=== PATIENT | male | born 1935 | race Caucasian/White ===

== ENCOUNTER → 2016-07-05 | Outpatient (CLI) | payer OTHER ==
[~2016-07-05] MED LIST: CARDIZEM CD180 MG PO; ECOTRIN81 MG PO; FLONASE 0.05% N16 GM; IPRAT-ALBUT 0.5-3 ML INH; K-DUR TAB 10 M10 MEQ PO; LASIX20 MG PO; LEVAQUIN TAB 5500 MG PO; LOPRESSOR50 MG PO; MYCOLOG II OINT15 GM EXT; OXYBUTYNIN CHLOR5 MG PO; PROTONIX40 MG PO; SYMBICORT 160-1 INHA INH; TOPROL XL 50 MG50 MG PO; VENTOLIN HFA 66.7 GM INH; XARELTO20 MG PO
== END ==
LOC: RAD 10:05
DX: J15.8 Pneumonia due to other specified bacteria (principal); L08.89 Other specified local infections of the skin and subcutaneous tissue; J42 Unspecified chronic bronchitis; J84.10 Pulmonary fibrosis, unspecified; M85.88 Other specified disorders of bone density and structure, other site; M45.4 Ankylosing spondylitis of thoracic region; Z88.8 Allergy status to other drugs, medicaments and biological substances
CPT/HCPCS: 71020

== ENCOUNTER → 2016-07-12 | Outpatient (CLI) | payer OTHER | LOC: RAD 13:54 | DX: M54.5 Low back pain (principal); B00.89 Other herpesviral infection; D40.0 Neoplasm of uncertain behavior of prostate; F32.1 Major depressive disorder, single episode, moderate; F32.89 Other specified depressive episodes; F41.1 Generalized anxiety disorder; I48.2 Chronic atrial fibrillation; J20.9 Acute bronchitis, unspecified; J30.9 Allergic rhinitis, unspecified; J43.8 Other emphysema; J44.1 Chronic obstructive pulmonary disease with (acute) exacerbation; L02.211 Cutaneous abscess of abdominal wall; L02.512 Cutaneous abscess of left hand; L08.89 Other specified local infections of the skin and subcutaneous tissue; M12.861 Other specific arthropathies, not elsewhere classified, right knee; N32.81 Overactive bladder; R09.02 Hypoxemia; R19.09 Other intra-abdominal and pelvic swelling, mass and lump; R60.0 Localized edema; R91.8 Other nonspecific abnormal finding of lung field; T78.49XS Other allergy, sequela; M51.36 Other intervertebral disc degeneration, lumbar region; Z00.01 Encounter for general adult medical examination with abnormal findings | CPT/HCPCS: 72110 ==

== ENCOUNTER → 2016-08-23 | Outpatient (CLI) | payer OTHER | LOC: OPSV 17:18 | DX: Z00.01 Encounter for general adult medical examination with abnormal findings (principal); B00.89 Other herpesviral infection; D40.0 Neoplasm of uncertain behavior of prostate; F32.1 Major depressive disorder, single episode, moderate; F32.89 Other specified depressive episodes; F41.1 Generalized anxiety disorder; I10 Essential (primary) hypertension; I48.2 Chronic atrial fibrillation; J20.8 Acute bronchitis due to other specified organisms; J30.9 Allergic rhinitis, unspecified; J43.8 Other emphysema; L02.211 Cutaneous abscess of abdominal wall; L02.214 Cutaneous abscess of groin; L02.32 Furuncle of buttock; L02.512 Cutaneous abscess of left hand; L08.89 Other specified local infections of the skin and subcutaneous tissue; L89.159 Pressure ulcer of sacral region, unspecified stage; M12.861 Other specific arthropathies, not elsewhere classified, right knee; M54.5 Low back pain; N32.81 Overactive bladder; R09.02 Hypoxemia; R19.09 Other intra-abdominal and pelvic swelling, mass and lump; R60.0 Localized edema; R91.8 Other nonspecific abnormal finding of lung field; T78.49XS Other allergy, sequela | CPT/HCPCS: 87070; 87077; 87186; 87205 ==

== ENCOUNTER 2021-04-17 10:40 | Inpatient (IN) | payer OTHER ==
[~2021-04-17] VITALS: Ht 182.9 cm; Wt 105.2 kg
[2021-04-17 12:25] LABS: HEMOGLOBIN 15.4 gm/dl (14.0-17.5); RED BLOOD COUNT 5.14 M/UL (4.20-5.50); WHITE BLOOD COUNT 8.4 K/UL (4.5-11.0)
[2021-04-17 12:45] LABS: BUN/CREATININE RATIO 32 (0-10)
[2021-04-17] MEDS ORDERED: SPIRONOLACTONE25 MG PO (17:12)
[2021-04-17] MEDS ORDERED: FUROSEMIDE20 MG PO (17:13)
[2021-04-17] MEDS ORDERED: RESTASIS1 EACH EYELF (17:14)
[2021-04-17] MEDS ORDERED: SYMBICORT 16010.2 GM INH (17:15)
[2021-04-17] MEDS ORDERED: DUREZOL5 ML EYERT (17:19)
[2021-04-17 17:24] LABS: BORDETELLA PARAPERTUSSIS Not Detected (Not Detectd); BORDETELLA PERTUSSIS Not Detected (Not Detectd); CHLAMYDIA PNEUMONIAE Not Detected (Not Detectd); CORONAVIRUS HKU1 Not Detected (Not Detectd); CORONAVIRUS NL63 Not Detected (Not Detectd); CORONAVIRUS OC43 Not Detected (Not Detectd); CORONOAVIRUS 229E Not Detected (Not Detectd); HUMAN METAPNEUMOVIRUS Not Detected (Not Detectd); HUMAN RHINOVIRUS/ENTEROVIRUS Not Detected (Not Detectd); INFLUENZA A Not Detected (Not Detectd); INFLUENZA B Not Detected (Not Detectd); MYCOPLASMA PNEUMONIAE Not Detected (Not Detectd); PARAINFLUENZA VIRUS 1 Not Detected (Not Detectd); PARAINFLUENZA VIRUS 2 Not Detected (Not Detectd); PARAINFLUENZA VIRUS 3 Not Detected (Not Detectd); PARAINFLUENZA VIRUS 4 Not Detected (Not Detectd); RESPIRATORY SYNCYTIAL VIRUS Not Detected (Not Detectd)
[2021-04-17 20:41] LABS: SARS-CoV-2 NOT DETECTED (Not Detectd)
--- NOTE | 2021-04-18 02:00 | NUR ---
PATIENT HEARTRATE CONTINUES TO DROP INTO THE 30'S AND A COUPLE OF TIMES IN THE 20'S WHILE SLEEPING. PATIENT STILL IN AFIB WITH SLOW VENTRICULAR RESPONSE. NOTIFIED DR CARDONA OF PATIENT'S HEARTRATE AND ASKED IF THERE WAS ANYTHING ELSE THAT NEEDED TO BE DONE FOR THE PATIENT AT THIS TIME. NO NEW ORDERS RECEIVED. CARDIOLOGY CONSULT HAS BEEN ORDERED. PATIENT'S DAUGHTER IS AT BEDSIDE.
--- NOTE | 2021-04-18 03:00 | NUR ---
PATIENT HAS BEEN RESTING COMFORTABLY TONIGHT WITH DAUGHTER AT BEDSIDE. PHOTOS TAKEN OF BLISTERS TO BLE AND BLISTERS ARE WRAPPED WITH NON-ADHESIVE PADS AND KERLIX. WAFFLE MATTRESS PLACED UNDER PATIENT. BEAR-HUGGER REMOVED BY PATIENT; TEMPERATURE 97.6 AXILLARY AT THIS TIME. PATIENT AWAKE AND TALKING, ABLE TO DRINK SIPS OF WATER. INSTRUCTED PATIENT'S DAUGHTER TO CALL FOR WANTS/NEEDS.
[2021-04-18 04:39] LABS: HEMOGLOBIN 14.8 gm/dl (14.0-17.5); RED BLOOD COUNT 4.98 M/UL (4.20-5.50); WHITE BLOOD COUNT 8.1 K/UL (4.5-11.0)
[2021-04-18 05:46] LABS: BUN/CREATININE RATIO 35 (0-10)
[2021-04-19 04:32] LABS: HEMOGLOBIN 15.4 gm/dl (14.0-17.5); RED BLOOD COUNT 5.22 M/UL (4.20-5.50)
[2021-04-19 04:33] LABS: WHITE BLOOD COUNT 11.8 K/UL (4.5-11.0)
[2021-04-19 05:18] LABS: BUN/CREATININE RATIO 33 (0-10)
[2021-04-19 14:57] LABS: BODY FLUID SOURCE PLEURAL; MONONUCLEAR CELLS 95 (75-100); POLYMORPHONUCLEAR % 5 (0-25); RBC (AUTOMATED) 3200 (0-100000); WBC (AUTOMATED) 429 (0-500)
[2021-04-19 15:13] LABS: TOTAL PROTEIN, BODY FLUID 2.7 gm/dL
[2021-04-19 15:14] LABS: LDH, BODY FLUID 55 U/L
[2021-04-20 03:56] LABS: HEMOGLOBIN 17.2 gm/dl (14.0-17.5); RED BLOOD COUNT 5.73 M/UL (4.20-5.50)
[2021-04-20 03:59] LABS: WHITE BLOOD COUNT 15.7 K/UL (4.5-11.0)
[2021-04-20 04:11] LABS: BUN/CREATININE RATIO 36 (0-10)
[2021-04-21 06:49] LABS: HEMOGLOBIN 16.2 gm/dl (14.0-17.5); RED BLOOD COUNT 5.39 M/UL (4.20-5.50); WHITE BLOOD COUNT 12.8 K/UL (4.5-11.0)
[2021-04-21] MEDS ORDERED: HALDOL 1 MG TAB1 MG PO (13:02)
[2021-04-21] MEDS ORDERED: OMNICEF 300 MG300 MG PO (13:25)
--- NOTE | 2021-04-22 16:46 | NUR ---
DR. STRANGE ROUNDED EARLIER, PATIENT WAS STILL HAVING ISSUES WITH CONSTIPATION. SHE ORDERED FOR A SINGLE DOSE OF MAG CITRATE, BUT PATIENT HAD A LARGE BOWEL MOVEMENT BEFORE ORDER WAS PUT IN. I LET MD KNOW, AND SHE SAID TO HOLD ON THE ORDER.
--- NOTE | 2021-04-23 23:57 | NUR ---
PATIENT DAUGHTER AT BEDSIDE REFUSING TO HAVE TELE PLACED ON PATIENT AT THIS TIME.
--- NOTE | 2021-04-24 12:49 | NUR ---
REPORT CALLED TO [facility] AT THIS TIME, HOSPICE NURSE, PT CONTINUES TO WAIT IN EMS , WAS CALLED AT 1130 NOTED
--- NOTE | 2021-04-24 14:02 | NUR ---
PT LEFT PER EMS AT THIS TIME NOTED
== END 2021-04-24 13:55 | DRG 291 ==
LOC: ER1 10:40 → M/S 15:44 → CDU 15:44 → PROG CARE 21:00 → M/S 04-18 17:42
PROVIDERS: Internal Medicine; Physician Assistant; ADMIT Internal Medicine Infectious Disease
PROC: B24BZZZ Ultrasonography of Heart with Aorta (ICD-10-PCS; 2021-04-18)
PROC: 0W9B3ZZ Drainage of Left Pleural Cavity, Percutaneous Approach (ICD-10-PCS; principal; 2021-04-19)
PROC: BB4BZZZ Ultrasonography of Pleura (ICD-10-PCS; 2021-04-19)
DX: I11.0 Hypertensive heart disease with heart failure (principal); J96.22 Acute and chronic respiratory failure with hypercapnia; Z20.822 Contact with and (suspected) exposure to COVID-19; Z66 Do not resuscitate; J96.21 Acute and chronic respiratory failure with hypoxia; I62.03 Nontraumatic chronic subdural hemorrhage; I50.43 Acute on chronic combined systolic (congestive) and diastolic (congestive) heart failure; G93.41 Metabolic encephalopathy; I48.20 Chronic atrial fibrillation, unspecified; J90 Pleural effusion, not elsewhere classified; E87.2 Acidosis; I27.20 Pulmonary hypertension, unspecified; F03.90 Unspecified dementia, unspecified severity, without behavioral disturbance, psychotic disturbance, mood disturbance, and anxiety; R00.1 Bradycardia, unspecified; I48.0 Paroxysmal atrial fibrillation; H54.61 Unqualified visual loss, right eye, normal vision left eye; I44.7 Left bundle-branch block, unspecified; C61 Malignant neoplasm of prostate; G47.33 Obstructive sleep apnea (adult) (pediatric); J44.9 Chronic obstructive pulmonary disease, unspecified; R45.1 Restlessness and agitation; Z79.01 Long term (current) use of anticoagulants; Z91.14 Patient's other noncompliance with medication regimen; Z87.891 Personal history of nicotine dependence; Z51.5 Encounter for palliative care; Z83.3 Family history of diabetes mellitus; Z88.8 Allergy status to other drugs, medicaments and biological substances; K59.00 Constipation, unspecified
CPT/HCPCS: ECHO; 36415; 36600; 70450; 71045; 80048; 80053; 81001; 82140; 82150; 82550; 82553; 82803; 82945; 83605; 83615; 83735; 83874; 83880; 83986; 84157; 84439; 84443; 84484; 85025; 85027; 85610; 86140; 87040; 87070; 87086; 87205; 87633; 89051; 93005; 93306; 94640; 94660; 94664; 94760; 99285; J0456; J0696; J1940; J2060; J2930; J7030; U0002